=== PATIENT | male | born 1965 | race Caucasian/White ===

== ENCOUNTER 2016-09-13 05:19 | Emergency (ER) | payer MEDICARE ==
[~2016-09-13] VITALS: Ht 182.9 cm; Wt 92.0 kg
[2016-09-13 06:49] LABS: BASOPHILS % 0.8 % (0.0-2.0); EOSINOPHILS % 3.9 % (0.0-5.0); HEMOGLOBIN. 12.2 g/dL (14.0-18.0); LYMPHOCYTES % 32.5 % (20.0-50.0); MEAN CORPUSCULAR HEMOGLOBIN 31.5 pg (28.0-32.0); MEAN CORPUSCULAR HGB CONC 34.9 g/dL (31.0-37.0); MEAN CORPUSCULAR VOLUME 90.3 fL (80.0-94.0); MEAN PLATELET VOLUME 7.3 fl (7.4-10.4); MONOCYTES % 11.3 % (2.0-8.0); NEUTROPHILS % 51.5 % (40.0-76.0); PLATELET 293 x1000/uL (130-400); RED BLOOD CELL COUNT 3.88 mill/uL (4.7-6.1); RED CELL DISTRIBUTION WIDTH 14.9 % (11.6-14.6)
[2016-09-13 06:52] VITALS: BP 139/84
[2016-09-13 06:55] LABS: INR 1.1; PROTHROMBIN TIME 11.4 sec
[2016-09-13] MEDS: METOCLOPRAMIDE HCL 10MG/2ML VIAL IM ONE (06:56)
[2016-09-13] MEDS: KETOROLAC 60MG/2ML VIAL IM ONE (06:57)
[2016-09-13 07:06] LABS: ALANINE AMINOTRANSFERASE 39 IU/L (13-61); ANION GAP 12; CALCIUM 8.3 mg/dL (8.5-10.1); CARBON DIOXIDE 26 mEq/L (21-32); CHLORIDE 107 mEq/L (98-107); INDEX HEMOLYSI 1 (1-3); INDEX ICTERIC 1 (1-4); INDEX LIPEMIC 1 (1-3); NT PRO B-TYPE NATRIURETIC PEP 180 pg/mL (5-125); TROPONIN I < 0.02 ng/mL (0.00-0.04); UREA NITROGEN BLOOD 7 mg/dL (7-21); eGFR > 60 mL/min (>60)
== END 2016-09-13 08:11 | disposition home or self-care (01) ==
LOC: ER 05:30
DX: M79.671 Pain in right foot (principal); R51 Headache; I10 Essential (primary) hypertension; E11.9 Type 2 diabetes mellitus without complications; I50.9 Heart failure, unspecified; F17.200 Nicotine dependence, unspecified, uncomplicated; Z88.0 Allergy status to penicillin; Z85.46 Personal history of malignant neoplasm of prostate
CPT/HCPCS: 36415; 71010; 73630; 80053; 83880; 84484; 85025; 85610; 93005; 96372; 99285; J1885; J2765

== ENCOUNTER 2022-09-25 14:04 | Emergency (ER) | payer MEDICARE, OTHER ==
[~2022-09-25] VITALS: Ht 177.8 cm; Wt 91.0 kg
[2022-09-25 14:12] VITALS: BP 154/84
== END 2022-09-25 15:32 | disposition home or self-care (01) ==
LOC: ER 14:04
DX: M25.775 Osteophyte, left foot (principal); M25.774 Osteophyte, right foot; I11.0 Hypertensive heart disease with heart failure; I50.9 Heart failure, unspecified; E11.9 Type 2 diabetes mellitus without complications; Z98.890 Other specified postprocedural states
CPT/HCPCS: 99283

== ENCOUNTER 2022-09-25 16:37 | Emergency (ER) | payer MEDICARE, OTHER ==
[~2022-09-25] VITALS: Ht 182.9 cm; Wt 107.0 kg
[2022-09-25 16:40] VITALS: BP 139/82
== END 2022-09-25 18:29 | disposition home or self-care (01) ==
LOC: ER 16:37
DX: L84 Corns and callosities (principal)
CPT/HCPCS: 99283